=== PATIENT | female | born 1995 | race Two or more races ===

== ENCOUNTER 2021-02-17 19:50 | Outpatient (CLI) | payer OTHER | END 2021-02-18 12:00 | disposition home or self-care (01) | LOC: OBS/DEL 19:50 | PROVIDERS: ATTEND Obstetrics & Gynecology | DX: O26.892 Other specified pregnancy related conditions, second trimester (principal); R10.2 Pelvic and perineal pain; Z3A.21 21 weeks gestation of pregnancy ==

== ENCOUNTER 2021-06-19 14:15 | Inpatient (IN) | payer OTHER ==
[~2021-06-19] VITALS: Ht 162.6 cm; Wt 81.6 kg
[2021-06-29] MEDS ORDERED: PRENATAL TABLE1 EAC3 PO (12:41)
== END 2021-07-01 13:31 | disposition home or self-care (01) | DRG 807 ==
LOC: LDR 06-29 12:33 → OB/GYN 06-29 19:10
PROVIDERS: ADMIT Obstetrics & Gynecology; ATTEND Obstetrics & Gynecology
PROC: 10E0XZZ Delivery of Products of Conception, External Approach (ICD-10-PCS; principal; 2021-06-29)
PROC: 0KQM0ZZ Repair Perineum Muscle, Open Approach (ICD-10-PCS; 2021-06-29)
PROC: 4A1HXCZ Monitoring of Products of Conception, Cardiac Rate, External Approach (ICD-10-PCS; 2021-06-29)
DX: O70.1 Second degree perineal laceration during delivery (principal); Z37.0 Single live birth; Z3A.40 40 weeks gestation of pregnancy; Z20.822 Contact with and (suspected) exposure to COVID-19

== ENCOUNTER 2024-04-29 09:49 | Outpatient (CLI) | payer OTHER ==
[~2024-04-29 09:49] MED LIST: PRENATAL TABLE1 EAC3 PO
== END 2024-04-29 09:50 | disposition home or self-care (01) ==
LOC: PRENATAL 09:49
PROVIDERS: ATTEND Obstetrics & Gynecology Maternal & Fetal Medicine
DX: O36.80X0 Pregnancy with inconclusive fetal viability, not applicable or unspecified (principal); Z36.82 Encounter for antenatal screening for nuchal translucency; Z14.8 Genetic carrier of other disease; Z3A.13 13 weeks gestation of pregnancy

== ENCOUNTER 2024-06-15 08:04 | Outpatient (CLI) | payer OTHER | END 2024-06-15 08:05 | disposition home or self-care (01) | LOC: PRENATAL 08:04 | PROVIDERS: ATTEND Obstetrics & Gynecology Maternal & Fetal Medicine | DX: O44.00 Complete placenta previa NOS or without hemorrhage, unspecified trimester (principal); Z3A.20 20 weeks gestation of pregnancy ==

== ENCOUNTER → 2024-09-07 09:09 | Outpatient (CLI) | payer OTHER | END | disposition home or self-care (01) | LOC: PRENATAL 09:09 | PROVIDERS: ATTEND Obstetrics & Gynecology Maternal & Fetal Medicine | DX: O26.849 Uterine size-date discrepancy, unspecified trimester (principal); O36.8199 Decreased fetal movements, unspecified trimester, other fetus; Z3A.33 33 weeks gestation of pregnancy ==

== ENCOUNTER 2024-10-15 15:00 | Inpatient (IN) | payer OTHER ==
[~2024-10-15] VITALS: Ht 162.6 cm; Wt 84.4 kg
[2024-11-01] VITALS (9 sets, daily range): BP systolic 104–122; BP diastolic 57–71
[2024-11-01] MEDS ORDERED: RINGERS SOLUTION,LACTATED 1,000 ML IV SCH (06:15)
[2024-11-01 07:04] LABS: BASO % 0.4 % (0.1-1.2); EOS # 0.11 (0.04-0.54); EOS % 1.0 % (0.7-7.0); LYMPH # 2.40 (1.18-3.74); LYMPH % 21.4 % (19.3-53.1); MEAN PLATELET VOLUME 10.00 fl (9.4-12.4); MONO # 0.70 (0.24-0.82); MONO % 6.2 % (4.7-12.5); NEUT # 7.81 (1.56-6.13); NEUT % 69.6 % (34.0-71.1); RED CELL DISTRIBUTION WIDTH 13.9 % (11.6-14.4)
[2024-11-01 07:06] LABS: URINE APPEARANCE Clear; URINE BILIRRUBIN Negative (NEGATIVE); URINE BLOOD Negative; URINE COLOR Yellow; URINE GLUCOSE Negative (NEGATIVE); URINE KETONE 15 (NEGATIVE); URINE LEUKOCYTE Trace; URINE NITRATE Negative; URINE PROTEIN Negative (NEGATIVE); URINE UROBILINOGEN 0.2 E.U./dl
[2024-11-01 07:11] LABS: URINE BACTERIA 162.7 uL (0.0-1933); URINE EPITHELIAL CELLS 23.1 uL (0.0-38.8); URINE WBC 14.2 uL (0.0-23.2)
[2024-11-01 07:37] LABS: INR 0.94
[2024-11-01 07:43] LABS: URINE CAST 0.00 uL (0.0-1.40); URINE RBC 1.7 uL (0.0-20.8)
[2024-11-01] MEDS ORDERED: OXYTOCIN 500 ML IV SCH (08:00)
[2024-11-01] MEDS ORDERED: MORPHINE SULFATE 4 MG/ML CARTRIDGE IV ONE (08:00)
[2024-11-01] MEDS ORDERED: CHLORHEXIDINE GLUCONATE 120 ML BOTTLE TOP ONE (12:30)
[2024-11-01] MEDS ORDERED: ERYTHROMYCIN BASE OPHT 1GM EACH TUBE OP ONE (12:30)
[2024-11-01] MEDS ORDERED: LIDOCAINE HCL 1% 10ML VIAL IJ ONE (12:30)
[2024-11-01] MEDS ORDERED: OXYTOCIN 1,000 ML IV SCH (12:30)
[2024-11-01 17:56] LABS: BASO % 0.2 % (0.1-1.2); EOS # 0.03 (0.04-0.54); EOS % 0.1 % (0.7-7.0); LYMPH # 2.31 (1.18-3.74); LYMPH % 11.4 % (19.3-53.1); MEAN PLATELET VOLUME 10.30 fl (9.4-12.4); MONO # 1.35 (0.24-0.82); MONO % 6.7 % (4.7-12.5); NEUT # 16.36 (1.56-6.13); NEUT % 80.9 % (34.0-71.1); RED CELL DISTRIBUTION WIDTH 13.9 % (11.6-14.4)
[2024-11-02] VITALS: BP 106/71
[2024-11-02 04:00] VITALS: BP 101/61
[2024-11-02 08:00] VITALS: BP 95/64
[2024-11-02] MEDS ORDERED: PNV,CALCIUM 72/IRON/FOLIC ACID 1 TAB TABLET PO SCH (09:00)
[2024-11-02 16:50] VITALS: BP 108/70
[2024-11-02 23:46] VITALS: BP 100/68
[2024-11-03 08:28] VITALS: BP 93/61
== END 2024-11-03 12:11 | disposition home or self-care (01) | DRG 807 ==
LOC: OB/GYN 11-01 06:06 → LDR 11-01 06:06 → OB/GYN 11-01 11:42 → SURG 11-01 15:00 → OB/GYN 11-03 12:11
PROVIDERS: ADMIT Obstetrics & Gynecology; ATTEND Obstetrics & Gynecology
PROC: 10E0XZZ Delivery of Products of Conception, External Approach (ICD-10-PCS; principal; 2024-11-01)
PROC: 0KQM0ZZ Repair Perineum Muscle, Open Approach (ICD-10-PCS; 2024-11-01)
PROC: 4A1HXCZ Monitoring of Products of Conception, Cardiac Rate, External Approach (ICD-10-PCS; 2024-11-01)
DX: O70.1 Second degree perineal laceration during delivery (principal); Z37.0 Single live birth; Z3A.40 40 weeks gestation of pregnancy

== ENCOUNTER → 2024-10-24 | Outpatient (CLI) | payer OTHER | END | disposition home or self-care (01) | LOC: NST 16:06 | PROVIDERS: ATTEND Specialist | DX: Z34.83 Encounter for supervision of other normal pregnancy, third trimester (principal) ==